=== PATIENT | female | born 1990 | race Caucasian/White ===

== ENCOUNTER 2024-05-02 09:50 | Outpatient (AMB) | payer OTHER, SELFPAY ==
--- NOTE | 2024-05-02 09:52 | A.OFFPC_ITS ---
Vital Signs 05/02/24 10:01 Height 5 ft 5 in Weight 189 lb 4 oz BMI 31.5 BP 122/74 Blood Pressure Location Lt brachial Position Sitting Respiration 13 Pulse 99 Pulse Source Pulse Oximeter Temp 97.7 F Temp Source Oral Pulse Oximetry (%) 99 Oxygen Delivery Method Room Air Intake Visit Reasons: N/P Est. Care Intake Note: new patient to establish care Film Coater Required: No Allergies No Known Allergies Allergy (Verified 05/02/24 09:54) Medication List - Last Reconciled 05/02/24 by FESTUS Kiser No Known Home Meds Tobacco use date assessed: 05/02/24 Dental Screening Dental Screen Date: 05/02/24 Did you have a dental visit in the last 12 months?: Yes Did you have a dental problem in the last 6 months where you did not have access to dental care?: No Was dental information given to patient?: Patient has dentist HPI HPI Comments History of Present Illness Details 33-year-old female with ADHD, opiate dep endence, PTSD, OCD, obesity, MDD, LISA Psych: multiple admissions surgical hx: L arm family hx: 2 boys alive and well, (6 &4), lives w children and mom. Recently fired from job, missed her shift. Denies any fmhx dm, cancer, cad, + thyroid mom and mgm Health Maintenance ? PAP utd with outside provider ? Tdap 2018, declined flu Specialists: [facility] for subaxone heel stiffener Psychiatry and counselor Here today to est care and for a CPE Previous PCP Dr Brown at [facility], reports has not been seen in years. No previous records available to me today Her biggest concern is that of her ADHD, LISA, MDD, PTSD on ODD. Was seeing [facility] in [place] for years Reports she is w/o her license and has been without her medications since February. She did visit the emergency room to get refills on her Adderall as well as her bupropion. The last time that she was on these medications was in March. She reports that h er symptoms are uncontrolled without these medications. She has an appointment with [facility] for both the prescriber and counselor. Her 1st appointment for the prescriber is 07/06/2024 She would bring with me records from [facility] that I was able to review that supports her diagnoses along with the medications that she was taking. I also reviewed [facility]. See the information below. She was not forthcoming about her Suboxone but once asked about it she disclosed the information about the opiate addiction in the past. When the UTox was discuss she states that she has been taking Ativan that she was prescribed at an emergency room visit. The last time was about 3 days ago. She is also maintained on Suboxone managed by [employer] what she reports as an Internet based business. 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 She reports that she has never used injectable drugs or any street d rugs. Reports that she has only been maintained on Suboxone which is working well for her. Optho no glasses, no concerns Skin - no changes, no family hx of skin ca Plan Check routine screening labs today to establish a baseline. Include a urine toxicology screen. Patient was made aware of the requirements for passing a urine tox screen to be prescribed Adderall. If she passes the urine tox screen I will prescribe Adderall and bridge her until she was seen by her prescriber at [facility] in July. I have sent her bupropion XL 150 mg to her pharmacy and she can restart that right away. If she is able to start on the Adderall she will be required return to the office in 30 days and complete a contract. The below information was reviewed with her today at the time of the visit. She will be communicated with via the portal with the results of her U tox screen in the next steps. If the U tox is positive she will need to follow up with her prescriber for any additional stimulants or controlled substances. Labs from 05/02/2024 show normal electrolytes, normal renal function, hemoglobin A1c of 5%, AST 23, elevated ALT at 50, normal lipid profile, normal B12, normal vitamin-D, normal TSH and folate, normal urine microalbumin creatinine ratio, the urine toxicology screen was positive for buprenorphine urine and amphetamines. Given the + amphetamines will defer adderral prescribing. Pt made aware via phone call. RUN: 05/02/24 170 7 PAGE 1 [facility] [address] [place] [id number] Phon e: [phone] Product Development Technician terence: Bill Johnson M.D. Specimen Inqu iry Name: Raul Gonzalez Age/Sex: 33 /F : Acct#: [id number] Unit#: [id number] Atten d Dr: Patric Dixon MEDICAL TECHNOLOGIST CLINICALindeniBC Re05/02/24 Status: REG REF [facility] Disch: SPEC : [id number] ROSI: -1106 ST ATUS: COMP REQ : [id number] RECD: -[address]: Rajiv Dixon MEDICAL TECHNOLOGIST CLINICAL-[employer] COMP: 0 05/02/24-1448 ENTER ED: 05/02/24-[address]: GURPREET RED: Ur Drug Scrn Test Result Flag Refere nce Opiates, Ur No t Detected Not Det ect Opiate cut-off is 300 ng/mL. Positive resul ts are unconfirmed and should not be used for n on-medical purpose s. Barbiturate, Ur Not Detected Not D etect Barbiturate cut-off is 200 ng/ mL. Positiv e results are unco nfirmed and should not be used for non-medical purposes. PCP, U r Not Detecte d Not Detect Phenc yclidine cut-off i s 25 ng/mL. Positive results are unconfirmed an d should not be us ed for non- medical purposes. Amphetamine,Ur P OSITIVE H Not Dete ct Amphetamine cut -off is 1000 ng/mL . Positive results are unconf irmed and should n ot be used for non-medical pu rposes. Benzodia zep,Ur Not Detected Not Detect Benzodi azepine cut-off is 200 ng/mL. Positive results are unconfirmed an d should not be us ed for non- medical purposes. Cocaine, Ur Not Detected Not Dete ct Cocaine cut-off is 300 ng/mL. Positive resul ts are unconfirmed and should not be used for n on-medical purpose s. Cannabinoid, Ur Not Detected Not D etect Cannabinoid cut-off is 50 ng/m L. Positive results are uncon firmed and should not be used for non-medical p urposes. Ur Meth Scrn Not Detected Not Detect ng/mL Methadone cut-off is 300 ng/mL. Positive resul ts are unconfirmed and should not be used for n on-medical purpose s. Fentanyl, ur Not Detected Not D etect Fentanyl cut -off is 1 ng/mL. Positive res ults are unconfirm ed and should not be used for non-medical purpo ses. Oxycodone U rine Not Detected Not Detect ng/mL Oxy codone cut-off is 100 ng/mL. Positive results a re unconfirmed and should not be use d for non-m edical purposes. Buprenorph Scr Po sitive H Not Detec t ng/mL Buprenor phine cut-off is 5 ng/mL. Pos itive results are unconfirmed and sh ould not be used f or non-medi katie purposes. END OF REPORT * * Patient is aware they are being prescribed a controlled substance. They were educated that this medication does require routine monthly office visits to monitor weight, blood pressure, heart rate and to screen for any signs of abuse or misuse. They were educated that they may be subject to random pill counts and/or U tox screenings. The prescription drug monitoring program we will be monitored at each visit to further screen for signs of abuse or misuse to include filling prescriptions at other physician's offices. The patient should maintain prescription refills of the same local pharmacy and advised the provider of any changes immediately. If at any time there is a concern for abuse or misuse or if there are any signs of side effects such as elevated blood pressure, elevated heart rate or weight loss patient is made aware that this medication will be discontinued. The patient is aware of the above and is willing to proceed. This note is constructed using voice recognition software. While every effort has been made to ensure accuracy in pug machine operator, still errors may have been included Sometimes, these errors may affect the content or meaning of the given sentence . An additional 20 minutes was spent addressing the problem(s) noted at todays visit. This includes time spent before the visit reviewing the chart, time spent during the visit, and time spent after the visit on documentation reviewing laboratory results, diagnostic imaging, medications, performing a medically necessary evaluation, counseling on diagnoses, care coordination, ordering appropriate tests, ordering appropriate medications, review of tests performed by other providers, reporting test results with the patient, communication with other healthcare providers. Prescriptions Total: 157 ?Private Pay: 4 Showing 1-15 of 157 Items?View?15 Items? [email or web address] ??of 11? [email or web address] Filled? Written? ID? Drug? QTY? Days? Prescriber? RX #? Dispenser? Refill? Daily Dose*? Pymt Type? [facility]? 04/21/2024 04/21/2024 1 Sub oxone 8 Mg-2 Mg Sl Film 42 14 Ca Kor [id number] Cv s (1450) 0/0 24.00 mg [place] 04/07/2024 04/07/2024 1 Sub oxone 8 Mg-2 Mg Sl Film 42 14 Ca Kor [id number] Cv s (1450) 0/0 24.00 mg [place] 03/27/2024 03/24/2024 1 Sub oxone 8 Mg-2 Mg Sl Film 42 14 Ca Kor [id number] Cv s (1450) 0/0 24.00 mg [place] 03/13/2024 03/10/2024 1 Sub oxone 8 Mg-2 Mg Sl Film 42 14 Ca Kor [id number] Cv s (1450) 0/0 24.00 mg [place] 02/28/2024 02/26/2024 1 Sub oxone 8 Mg-2 Mg Sl Film 42 14 Ca Kor [id number] Cv s (1450) 0/0 24.00 mg [place] 02/16/2024 02/14/2024 1 Sub oxone 8 Mg-2 Mg Sl Film 42 14 Je Gag [id number] Cv s (1450) 0/0 24.00 mg [place] 02/16/2024 02/16/2024 1 Dex troamp-Amphet E r 20 Mg Cap 14 14 [facility] [id number] Cv s (1450) 0/0 PFSH Medical History (Updated 05/02/24 @ 10:56 by Mónica Dixon [facility]) ADHD Anxiety and depression Odd detrimental health beliefs PTSD (post-traumatic stress disorder) Surgical History (Updated 05/02/24 @ 10:00 by Kuldeep Collado MA) H/O hand surgery Family History (Updated 05/02/24 @ 10:00 by Kuldeep Collado MA) Sister Mental health disorder Father Mental health disorder Substance abuse Mother Thyroid disorder Maternal Grandmother Thyroid disorder Social History (Updated 05/02/24 @ 09:59 by Kuldeep Collado MA) Household Members: Family and Children Housing: House Are you a primary healthcare specialist to a significant other at home: Yes Do you presently have visiting nurse or other home services: No Alcohol intake: current Alcohol intake frequency: a few times a month Patient Tobacco Use Status: Never used Tobacco e-Cigarette/Vaping Use: Never Used Second Hand Smoke Exposure: No Current occupational status: unemployed Cognitive needs: No Hearing needs: No Vision needs: No Questionnaire PHQ-9 Over the last 2 weeks, how often have you been bothered by any of the following problems? 1. Little interest or pleasure in doing things: several days 2. Feeling down, depressed, or hopeless: more than half the days 3. Trouble falling or staying asleep, or sleeping too much: several days 4. Feeling tired or having little energy: several days 5. Poor appetite or overeating: not at all 6. Feeling bad about yourself - or that you are a failure or have let yourself or your family down: several days 7. Trouble concentrating on things, such as reading the newspaper or watching television: nearly every day 8. Moving or speaking so slowly that other people could have noticed. Or the opposite - being so fidgety or restless that you have been moving around a lot more than usual: nearly every day 9. Thoughts that you would be better off or of hurting yourself in some way: not at all Total score: 12 Depression Screening Interpretation: Positive Depression Screening Follow-up: Existing condition and In treatment Depression Screening Done: Yes 15809 - PHQ-9 Billing: Yes Source: Developed by Drs. Lucien Gupta, Corrine Carney, Delano Nesbitt and colleagues, with an educational andrea from [employer]. Thrive Questionnaire Date Thrive assessed: 05/02/24 I am a: Patient What is your living situation today?: I have a steady place to live Within the past 12 months, did the food you bought not last and you didn't have the money to get more?: Never true Within the past 12 months, did you worry whether your food would run out before you got money to buy more?: Never true Do you have trouble paying for medicines?: No Do you have trouble getting transportation to medical appointments?: No Do you have trouble paying your heating and electricity bill?: No Do you have trouble taking care of your child, family member or friend?: No Do you have trouble with day-to-day activities such as bathing, preparing meals, shopping, managing finances, etc.?: No Are you currently unemployed and looking for a job?: Yes Are you interested in more education?: Yes Please select the resources that you would like help with: None Currently or been in a relationship where the following occur: No concerns reported THRIVE Score: 0 AUDIT C Alcohol Use Questionnaire (AUDIT-C) 1. How often do you have a drink containing alcohol?: Never 2. How many drinks containing alcohol do you have on a typical day when you are drinking?: 1 or 2 3. How often do you have six or more drinks on one occasion?: Never Total Score: 0 Score Reviewed/Action Taken: Yes LISA-7 AMB Questionnaire LISA-7 Date LISA - 7 assessed: 05/02/24 Feeling nervous, anxious, or on edge: 1 = Several days Not being able to stop or control worryin = Several days Worrying too much about different things: 0 = Not at all Trouble relaxin = More than half the days Being so restless that it is hard to sit still: 3 = Nearly every day Becoming easily annoyed or irritable: 0 = Not at all Feeling afraid as if something awful might happen: 0 = Not at all Total LISA-7 score (0-4 normal; 5-9 mild; 10-14 moderate; 15-21 severe): 7 Source: Developed by Drs. Lucien Gupta, Delano Crawford Kroenke and colleagues, with an educational andrea from [employer]. LISA-7 Assessment Billing LISA-7 Assessment Tool: LISA-7 Assessment 37372 Physical exam (Primary Care) Vital Signs: Last Vital Signs Temp 97.7 F 05/02/24 10:01 Pulse 99 05/02/24 10:01 Resp 13 05/02/24 10:01 BP 122/74 05/02/24 10:01 Pulse Ox 99 05/02/24 10:01 Oxygen Delivery Method Room Air 05/02/24 10:01 BMI result Body Mass Index 31.5 BMI Assessment/Plan discussion: High BMI High, discussed plan: lifestyle Tobacco/Smoking Status: Tobacco use Status Tobacco use date assessed 05/02/24 05/02/24 10:04 Patient Tobacco Use Status Never used Tobacco 05/02/24 10:04 e-Cigarette/Vaping Use Never Used 05/02/24 10:04 PHQ-9: PHQ-9 Score PHQ-9: Total score 12 05/02/24 10:34 Depression Screening Interpretation: Positive Depression Screening Follow-up: Existing condition and In treatment Thrive Assessment: Date of Thrive Assessment Date Thrive assessed 05/02/24 05/02/24 09:53 Currently or been in a relationship where the following occur: No concerns reported Const Other: General: Well developed, well nourished, in no acute distress. Appears stated age. Head: Normocephalic, atraumatic. Eyes: Pupils are equal, round and reactive to light and accommodation. Conjunctivae are clear. Vision grossly normal. Ears: TMs clear AU, EACS WNL Nose: Patent, without discharge. Mouth: There are no ulcers or lesions noted. No inflammation, no post nasal drip, no plaques nor exudates. Geographic tongue Neck: Supple, no adenopathy or thyromegaly. Lungs: Clear to auscultation bilaterally. No rales, rhonchi or wheeze noted. Good air flow in all lares. Heart: Regular rate and rhythm. No murmurs, click, rubs or gallops are noted. Abdomen: Bowel sounds present in all quadrants. The abdomen is soft, nontender, with no masses or organomegaly noted. No hernias are noted. Musculoskeletal: Joints are nontender, without swelling, redness, or effusions. Range of motion is observed to be normal. Pulses: Peripheral pulses are equal and palpable bilaterally. Extremities: No clubbing, cyanosis nor edema is noted. Neurologic: Gait and station normal. Cranial Nerves 2-12 intact. Motor strength grossly symmetrical and intact. No sensory loss. Balance normal. Skin: No rashes, ulcers, or lesions noted. Turgor is good. Skin color is good. Hair and nails are without abnormalities. Psych: Normal eye contact, affect and mood appropriate, and normal interactions. Patient is alert and appropriate to context. Coding Level of Care Code Est Pt Level 3 (37073) New Pt Prev Care 18-39yr(69681 Diagnoses Encounter for general adult medical examination with abnormal findings Z00.01 Laboratory exam ordered as part of routine general medical examination Z00.00 Uncomplicated opioid dependence F11.20 Substance use status: uncomplicated Severe episode of recurrent major depressive disorder, without psychotic features F33.2 Major depression episode severity: severe Psychotic features: without psychotic features LISA (generalized anxiety disorder) F41.1 Attention deficit hyperactivity disorder (ADHD), combined type F90.2 Attention deficit-hyperactivity disorder type: combined inattentive- hyperactive Odd detrimental health beliefs Z78.9 PTSD (post-traumatic stress disorder) F43.10 BMI 31.0-31.9,adult Z68.31 Class 1 obesity due to excess calories without serious comorbidity with body mass index (BMI) of 31.0 to 31.9 in adult E66.811; E66.09; Z68.31 Obesity type: due to excess calories Serious obesity comorbidity presence: without serious comorbidity Additional Codes LISA-7 Assessment Billing - LISA-7 Assessment Tool: LISA-7 Assessment 43961 ([id number]) PHQ-9 - 47754 - PHQ-9 Billing: Yes ([id number]) Assessment & Plan Assessment & Plan (1) Encounter for general adult medical examination with abnormal findings: Code(s): Z00.01 - Encounter for general adult medical examination with abnormal findings Category: Medical (2) Laboratory exam ordered as part of routine general medical examination: Code(s): Z00.00 - Encounter for general adult medical examination without abnormal findings Category: Medical (3) Opiate dependence: Code(s): F11.20 - Opioid dependence, uncomplicated Category: Medical Qualifiers: Substance use status: uncomplicated Qualified Code(s): F11.20 - Opioid dependence, uncomplicated (4) MDD (major depressive disorder), recurrent episode: Code(s): F33.9 - Major depressive disorder, recurrent, unspecified Category: Medical Qualifiers: Major depression episode severity: severe Psychotic features: without psychotic features Qualified Code(s): F33.2 - Major depressive disorder, recurrent severe without psychotic features (5) LISA (generalized anxiety disorder): Code(s): F41.1 - Generalized anxiety disorder Category: Medical (6) ADHD: Code(s): F90.9 - Attention-deficit hyperactivity disorder, unspecified type Category: Medical Qualifiers: Attention deficit-hyperactivity disorder type: combined inattentive- hyperactive Qualified Code(s): F90.2 - Attention-deficit hyperactivity disorder, combined type (7) Odd detrimental health beliefs: Code(s): Z78.9 - Other specified health status Category: Medical (8) PTSD (post-traumatic stress disorder): Code(s): F43.10 - Post-traumatic stress disorder, unspecified Category: Medical (9) BMI 31.0-31.9,adult: Code(s): Z68.31 - Body mass index [BMI] 31.0-31.9, adult Category: Medical (10) Class 1 obesity with body mass index (BMI) of 31.0 to 31.9 in adult: Code(s): E66.811 - Obesity, class 1; Z68.31 - Body mass index [BMI] 31.0-31.9, adult Category: Medical Qualifiers: Obesity type: due to excess calories Serious obesity comorbidity presence: without serious comorbidity Qualified Code(s): E66.811 - Obesity, class 1; E66.09 - Other obesity due to excess calories; Z68.31 - Body mass index [BMI] 31.0-31.9, adult Plan . Orders: Orders Comprehensive Met. Panel Today Z00.00 - Encounter for general adult medical examination without abnormal findings Hemoglobin A1c Today Z00.00 - Encounter for general adult medical examination without abnormal findings Lipid Panel Today Z00.00 - Encounter for general adult medical examination without abnormal findings TSH reflex Free T4 Today Z00.00 - Encounter for general adult medical examination without abnormal findings Vitamin B12 and Folate Today Z00.00 - Encounter for general adult medical examination without abnormal findings Vitamin D 25-OH Total Today Z00.00 - Encounter for general adult medical examination without abnormal findings Drug Screen Urine Today F11.20 - Opioid dependence, uncomplicated Microalbumin, Random (w Creat) Today Z00.00 - Encounter for general adult medical examination without abnormal findings Medications: New bupropion HCl XL 150 mg PO QAM 90 tabs 1RF Patient Instructions: Walk-In Care (Urgent Care): We Make it Easy Walk-in for urgent medical issues such as: ? Seasonal Allergies ? Insect Bites ? Cough ? Diarrhea ? Acute Asthma Attacks ? Back, Knee or Joint Pain ? Ear Infection ? Fever without a Rash ? Headaches ? Nausea ? [place], Rash or Skin Irritation ? Sore Throat ? Sports Physicals ? Vomiting Most insurances are accepted. Patients do not need to be part of the [facility] to seek care at the walk-in clinic. Locations [facility] [place] , [place] [address] ? [phone] [facility] in [place] provides services to ages 18 and over. Open Tuesday-Tuesday: 8 a.m. to 5 p.m. and Tuesday: 9 a.m. to 3 p.m.* *Hours may vary due to staffing availability. To confirm Walk-In Care hours in [place], please call [phone]. [address] [place] [address] ? [phone] [facility] in [place] provides services to ages 12 and over. Open Tuesday-Tuesday: 8 a.m. to 5 p.m. Hours may vary due to staffing availability. To confirm Walk-In Care hours in [place], please call [phone]. LABORATORY SERVICES: [facility] ? Primary Location [address] [place] [address] Tuesday through Tuesday 6:00 AM ? 5:00 PM Tuesday 7:00 AM ? 11:00 AM* [phone] The [facility] Lab is centrally located near the front entrance of the Medical Center for easy outpatient access. Convenient parking is provided for outpatients. *Hours may vary due to staffing availability. To confirm Laboratory hours for any location, please call [phone]. Offsite Location For your convenience, we offer offsite laboratory draw stations at the following locations: [address] [place] [address] ? [facility] [place] [address], [address], [address], [place] Tuesday through Tuesday 7:30 AM ? 1:00 PM* [phone] *Hours may vary due to staffing availability. To confirm Laboratory hours for any location, please call [phone]. [place] ? [facility] [address] [facility] Tuesday through Tuesday 6:00 AM ? 3:30 PM* Tuesday 6:30 AM ? 3 PM* [phone] *Hours may vary due to staffing availability. To confirm Laboratory hours for any location, please call [phone] [place] [address] Tuesday through Tuesday 7:30 AM ? 4:00 PM* [phone] *Hours may vary due to staffing availability. To confirm Laboratory hours for any location, please call [phone] [place] [address] Tuesday through 9:00 AM ? 4:00 PM* *Hours may vary due to staffing availability. To confirm Laboratory hours for any location, please call [phone]. Appointments are not necessary. Walk-ins are welcome. Like all the departments throughout the [facility], our Lab undergoes frequent reviews to ensure the quality and accuracy of test results, and our staff takes special pride in its status as a nationally accredited facility. Patient Portal: ONE PATIENT. ONE RECORD. BETTER CARE. [facility] [facility] has a fully integrated, cutting- edge mobile electronic health information system that has revolutionized the way we care for our patients and manage our organization. This system improves communication and coordination enabling us to provide safe, higher-quality care, and an overall positive experience for staff and patients. Our first priority, as always, is to deliver the highest quality care possible. The system is running in the background supporting that priority. This portal is for all [facility] services and practices. If you are experiencing any technical difficulties with enrolling or logging into the Patient Portal please complete the [facility] Patient Portal Technical Support Form. [facility] now offers a new secure on-line interactive tool for patients to review their health information ? ?Patient Portal. This interactive web portal will enable patients and their families to take an active role in their care by providing easy, secure access to their health information via the internet. The Patient Portal provides patients with instant access to their health information, including laboratory results, medications, allergies, demographic information, visit history, and more. In addition to managing their own care, parents and health care proxies with authorized consent will appreciate the ability to access the records of those individuals for whom they provide care. Please note: if you wish to gain access (Proxy) to another patient?s portal, you will be required to come to the Medical Records Department in person at [facility]. Both the patient giving proxy access and the proxy will need to provide photo identification and complete the appropriate authorization. The Patient Portal also allows track their appointments online. The [facility] Patient Portal also saves patients time by allowing them to submit updates to their demographic and contact information prior to their visits. Portal email notifications will also alert patients to any new activity on their portal, such as test results and new appointments. In order to initially enroll in the [facility] Patient Portal, you will need to enter some required information including the following: * your [facility] Medical Record number * your personal home email address * name * date of Please note: In order to enroll in the [facility] Patient Portal, we need to have your email address on file in your electronic medical record. ?The email address needs to be specific for one person (yourself) in order for your Portal en rollment to be successful. ?You can update your email address in person with our Registration staff when you are registering for a hospital visit. ?Otherwise, you will need to come to the Health Information Management (Medical Records) Department at [facility]. ?We are open from Tuesday ? Tuesday from 7:30 a.m. ? 4:30 p.m. ?You will be required to present a photo id. Once you have successfully enrolled in the Patient Portal, you will receive a one-time user id and password for the Portal, sent to your email address. ?This will allow you to log into the Patient Portal within 99 hrs and reset your own logon id and password, and define personal security questions. ?Once your permanent login and password have been set, you can log into the [facility] Patient Portal at any time via the blue button above or from the Portal Logon button on any page of the [facility] website. [facility] encourage all of our patients to enroll in Patient Portal as it presents a valuable opportunity for patients and their families to actively participate in their care and stay healthy Welcome to [facility]. ?We look forward to working with you. Health screenings for women You should visit your health care provider from time to time, even if you are healthy. The purpose of these visits is to: Screen for medical issues Assess your risk for future medical problems Encourage a healthy lifestyle Update vaccinations and other preventive care services Help you get to know your provider in case of an illness Information Even if you feel fine, you should still see your provider for regular checkups. These visits can help you avoid problems in the future. For example, the only way to find out if you have high blood pressure is to have it checked regularly. High blood sugar and high cholesterol levels also may not have any symptoms in the early stages. A simple blood test can check for these conditions. There are specific times when you should see your provider or receive specific health screenings. The [place] Preventive Services Task Force publishes a list of recommended screenings. Below are screening guidelines for women ages 18 to 39. BLOOD PRESSURE SCREENING Your blood pressure should be checked at least once every 3 to 5 years if: Your blood pressure is in the normal range (top number less than 120 mm Hg and bottom number less than 80 mm Hg) You don't have risk factors for high blood pressure Ask your provider if you need your blood pressure checked more often if: The top number is 120 to 129 mm Hg or the bottom number is 70 to 79 mm Hg You have diabetes, heart disease, kidney problems, are overweight, or have certain other health conditions You have a first-degree relative with high blood pressure You are Black You had high blood pressure during a If the top number is 130 mm Hg or greater or the bottom number is 80 mm Hg or greater, this is considered stage 1 hypertension. Schedule an appointment with your provider to learn how you can reduce your blood pressure. Watch for blood pressure screenings in your area. Ask your provider if you can stop in to have your blood pressure checked. BREAST CANCER SCREENING Experts do not agree about the benefits of breast self-exams in finding breast cancer or saving lives. Talk to your provider about what is best for you. A screening mammogram is not recommended for most women under age 40. Your provider may discuss and recommend mammograms, MRI scans, or ultrasounds if you have an increased risk for breast cancer, such as: A mother or sister who had breast cancer at a young age (most often starting screening earlier than the age the close relative was diagnosed) You carry a high-risk genetic marker CERVICAL CANCER SCREENING Cervical cancer screening should start at age 21 years unless your provider advises otherwise. After the first test: Women ages 21 through 29 should have a Pap test every 3 years. Exoprts do not agree on whether HPV testing is recommended for this age group. Women ages 30 through 65 should be screened with either a Pap test every 3 years or the HPV test every 5 years or both tests every 5 years (called cotesting ). Women who have been treated for precancer (cervical dysplasia) should continue to have Pap tests for 20 years after treatment or until age 65, whichever is longer. If you have had your uterus and cervix removed (total hysterectomy), and you have not been diagnosed with cervical cancer or precancer (high grade cervical neoplasia), you do not need cervical cancer screening. CHOLESTEROL SCREENING Cholesterol screening should begin at: Age 45 for women with no known risk factors for coronary heart disease Age 20 for women with known risk factors for coronary heart disease Repeat cholesterol screening should take place: Every 5 years for women with normal cholesterol levels More often if changes occur in lifestyle (including weight gain and diet) More often if you have diabetes, heart disease, kidney problems, or certain other conditions DIABETES SCREENING You should be screened for diabetes starting at age 35 and then repeated every 3 years if you have no risk factors for diabetes. Screening may need to start earlier and be repeated more often if you have other risk factors for diabetes, such as: You have a first degree relative with diabetes. You are overweight or have obesity. You have high blood pressure, prediabetes, or a history of heart disease. Screening for diabetes should be done if you are planning to become and you are overweight and have other risk factors such as high blood pressure. DENTAL EXAM Go to the dentist once or twice every year for an exam and cleaning. Your dentist will evaluate if you need more frequent visits. EYE EXAM Have an eye exam every 5 to 10 years before age 40. If you have vision problems, have an eye exam every 2 years or more often if recommended by your provider. You should have an eye exam that includes an examination of your retina (back of your eye) at least every year if you have diabetes. IMMUNIZATIONS Commonly needed vaccines include: Flu shot: get one every year. COVID-19 vaccine: ask your provider what is best for you. Tetanus-diphtheria and acellular pertussis (Tdap) vaccine: have one at or after age 19 as one of your tetanus-diphtheria vaccines if you did not receive it as an adolescent. Tetanus-diphtheria: have a booster (or Tdap) every 10 years. Varicella vaccine: receive 2 doses if you never had chickenpox or the varicella vaccine. Hepatitis B vaccine: receive 2, 3, or 4 doses, depending on your exact circumstances. Measles, mumps, and rubella (MMR) vaccine: receive 1 to 2 doses if you are not already immune to MMR. Your provider can tell you if you are immune. Ask your provider about the human papillomavirus (HPV) vaccine if: You have not received the HPV vaccine in the past You have not completed the full vaccine series (you should catch up on this shot) Ask your provider if you should receive other immunizations if you have certain health problems that increase your risk for some diseases such as pneumonia. INFECTIOUS DISEASE SCREENING Women who are sexually active should be screened for chlamydia and gonorrhea up until age 25. Women 25 years and older should be screened for chlamydia and gonorrhea if at high risk. Screening for hepatitis C: All adults ages 18 to 79 should get a one-time test for hepatitis C. people should be screened at every . Screening for human immunodeficiency virus (HIV): All people ages 15 to 65 should get a one-time test for HIV. Depending on your lifestyle and medical history, you may also need to be screened for infections such as syphilis and HIV, as well as other infections. PHYSICAL EXAM All adults should visit their provider from time to time, even if they are healthy. The purpose of these visits is to: Screen for disease Assess your risk of future medical problems Encourage a healthy lifestyle Update your vaccinations and other preventive care services Maintain a relationship with a provider in case of an illness Your height, weight, and BMI should be checked at every exam. During your exam, your provider may ask you about: Depression and anxiety Diet and exercise Alcohol and tobacco use Safety issues, such as using seat belts, smoke detectors, and intimate partner violence Your medicines and risk for interactions SKIN SELF-EXAM Your provider may check your skin for signs of skin cancer, especially if you're at high risk, such as if you: Have had skin cancer before Have close relatives with skin cancer Have a weakened immune system OTHER SCREENING Talk with your provider about colon cancer screening if you have a strong family history of colon cancer or polyps, or if you have had inflammatory bowel disease or polyps yourself. Routine bone density screening of women under 40 is not recommended.
[2024-05-02 10:01] VITALS: BP 122/74; PULSE 99; RESP 13; TEMP 36.5; O2SAT 99; BMI 31.5
--- OUTSIDE RECORDS SUMMARY | 2024-05-02 11:36 | XMS_ITS | Clinical Summary ---
Author Organization [facility] it Address [address] [place] [address] Care Team Providers Care Tub Attendant Name Role Phone Chang Perez DO Primary Care Provider [phone] Surgical History Surgery Date Site/Laterality Comments OTHER SURGICAL HISTORY 02/2009 PROCEDURE: [place] ANES RADIUS ULNA WRIST/HAND BONES CLOSED PX OTHER SURGICAL HISTORY 03/15/12 PROCEDURE: [place] DILATION & CURETTAGE DX&/THER NONOBSTETRIC; COMMENT: ERS performed by Dr. Matta in management of a Missed . Family History Medical History Relation Name Comments Diabetes Maternal Grandmother Relation Name Status Comments Father Alive Maternal Grandfather Maternal Grandmother Alive Mother Alive Paternal Grandfather Paternal Grandmother Alive Sister Alive Social History Tobacco Use Types Packs/Day Years Used Date Smoking Tobacco: Former Smokeless Tobacco: Never Alcohol Use Standard Drinks/Week Comments No 0 (1 standard drink = 0.6 oz pur e alcohol) Sex and Gender Information Value Date Recorded Sex Assigned at Not on file Gender Identity Not on file Sexual Orientation Not on file Obstetrics History Plan of Treatment Health Maintenance Due Date Last Done Comments Hepatitis B Vaccines (1 of 3 - 19+ 3-dose series) 11/23/2007 Cervical Cancer Screening: P ap Smear 05/30/2020 05/30/2017 Depression Screening 03/07/2022 HIV Screening 03/07/2022 Hepatitis C Screening 03/07/2022 Social Influencers of Health Screening 03/07/2022 COVID-19 Vaccine (1 - 2023-2 5 season) 2023 Influenza Vaccine (#1) 2023 DTaP,Tdap,and Td Vaccines (2 - Td or Tdap) 11/15/2027 11/14/2017 HIB Vaccines Aged Out No longer eligi ble based on patient's age to complete this topic HPV Vaccines Aged Out No longer eligi ble based on patient's age to complete this topic Hepatitis A Vaccines Aged Out No long er eligible based on patient's age to complete this topic IPV Vaccines Aged Out No longer eligi ble based on patient's age to complete this topic MMR Vaccines Aged Out No longer eligi ble based on patient's age to complete this topic Meningococcal ACWY Vaccine Aged Out N o longer eligible based on patient's age to complete this topic Pneumococcal Vaccine: Pediat rics (0 to 5 Years) and At-Risk Patients (6 to 64 Years) Aged Out No longer eligi ble based on patient's age to complete this topic RSV Immunization Patients Un georgie 20 months Aged Out No longer eligible b ased on patient's age to complete this topic Varicella Vaccines Aged Out No longer eligible based on patient's age to complete this topic Procedures Procedure Name Priority Date/Time Associated Diagnosis Comments PAP SMEAR Routine 05/30/2017 from Last 3 Months or Most Recently Relevant to Health Maintenance Results * Pap smear (05/30/2017) 05/30/2017 Narrative HISTORICAL TESTING LAB RESULTING AGENCY - 06/02/2017 4:45 PM EST [id number] THINPREP PAP, IMAGED: NEGATIVE FOR SQUAMOUS INTRAEPITHELIAL LESION AND MALIGNANCY ??. VICTOR M VANG(ASCP) (CASE ELECTRONICALLY SIGNED 06 01 2017) ADEQUACY: SATISFACTORY. ENDOCERVICAL/TRANSFORMATION ZONE COMPONENT PRESENT. SOURCE: THINPREP PAP HPV IF ASCUS, CERVICAL, IMAGED: CLINICAL INFORMATION: HPV IF DIAGNOSIS OF ASCUS. LMP 02/26/2017, , PAP HX : POSITIVE ASCUS R87.610, Z12.4 Audelia Blake CN LAB CYTOLOGY ORDERAB LES HISTORICAL TESTING LAB RESULTING AGENCY from Last 3 Months or Most Recently Relevant to Health Maintenance Care Teams Tub Attendant Relationship Specialty Start Date End Date Chang Perez DO [address] [place] [address] PCP - General 10/02/06
== END 2024-05-02 10:46 | disposition home or self-care (01) ==
PROVIDERS: PCP Nurse Practitioner Family; Visit Provider Nurse Practitioner Family
DX: Z00.00 Encounter for general adult medical examination without abnormal findings (principal); F11.20 Opioid dependence, uncomplicated; F33.2 Major depressive disorder, recurrent severe without psychotic features; F41.1 Generalized anxiety disorder; F90.2 Attention-deficit hyperactivity disorder, combined type; Z78.9 Other specified health status; F43.10 Post-traumatic stress disorder, unspecified; Z68.31 Body mass index [BMI] 31.0-31.9, adult; E66.811 Obesity, class 1

== ENCOUNTER → 2024-05-02 09:50 | Outpatient (BNVA) | payer OTHER, SELFPAY | PROVIDERS: PCP Nurse Practitioner Family; Visit Provider Nurse Practitioner Family | DX: Z00.01 Encounter for general adult medical examination with abnormal findings (principal); F43.10 Post-traumatic stress disorder, unspecified; F42.9 Obsessive-compulsive disorder, unspecified; K21.9 Gastro-esophageal reflux disease without esophagitis; F11.20 Opioid dependence, uncomplicated; F33.2 Major depressive disorder, recurrent severe without psychotic features; F41.1 Generalized anxiety disorder; F90.2 Attention-deficit hyperactivity disorder, combined type; E66.811 Obesity, class 1; Z68.31 Body mass index [BMI] 31.0-31.9, adult; Z78.9 Other specified health status | CPT/HCPCS: 96127; 99212; 99385 ==

== ENCOUNTER 2024-05-02 11:00 | Outpatient (REF) | payer OTHER, SELFPAY ==
--- OUTSIDE RECORDS SUMMARY | 2024-05-02 13:20 | XMS_ITS | Clinical Summary ---
Author Organization [facility] it Address [address] [place] [address] Care Team Providers Care Machining And Assembly Supervisor Name Role Phone Chang Perez DO Primary Care Provider [phone] Surgical History Surgery Date Site/Laterality Comments OTHER SURGICAL HISTORY 02/2009 PROCEDURE: [place] ANES RADIUS ULNA WRIST/HAND BONES CLOSED PX OTHER SURGICAL HISTORY 03/15/12 PROCEDURE: [place] DILATION & CURETTAGE DX&/THER NONOBSTETRIC; COMMENT: ERS [...] RESULTING AGENCY - 06/02/2017 4:45 PM EST [id number] THINPREP PAP, IMAGED: NEGATIVE FOR SQUAMOUS INTRAEPITHELIAL [...] Recently Relevant to Health Maintenance Care Teams Machining And Assembly Supervisor Relationship Specialty Start Date End Date Chang Perez DO [address] [place] [address] PCP - General 10/02/06
[2024-05-02 14:48] LABS: Amphetamine Screen Urine POSITIVE (Not Detect); Barbiturates, Urine Not Detected (Not Detect); Benzodiazepines Screen Urine Not Detected (Not Detect); Buprenorphine Scr Positive (Not Detect); Cannabinoid Screen Urine Not Detected (Not Detect); Cocaine Screen Urine Not Detected (Not Detect); Fentanyl, urine Not Detected (Not Detect); Methadone Screen, Urine Not Detected (Not Detect); Opiate Screen Urine Not Detected (Not Detect); Oxycodone Screen Urine Not Detected (Not Detect); Phencyclidine Screen Urine Not Detected (Not Detect)
[2024-05-02 14:49] LABS: Estimated Average Glucose 97 mg/dL; Hemoglobin A1C 107.8626 umol/L; Total Hemoglobin (HGBA1C) 3526.3775 umol/L
[2024-05-02 15:19] LABS: Microalbum/Creatinine Ratio Ur 4.3 ug/mg cr (<30)
[2024-05-02 15:30] LABS: Alanine Aminotransferase 50 U/L (0-31); Albumin Level 4.3 g/dL (3.5-5.0); Alkaline Phosphatase 86 U/L (39-117); Anion Gap 8 (12-20); Aspartate Amino Transferase 23 U/L (5-31); Bilirubin Total 0.4 mg/dL (0.0-1.0); Blood Urea Nitrogen 8 mg/dL (9-16); Calcium 8.6 mg/dL (8.4-10.2); Carbon Dioxide 26 mmol/L (22-29); Chloride 105 mmol/L (96-108); Cholesterol 122 mg/dL (<200); Estimated Glomerular Filt Rate > 60; Glucose Random 79 mg/dL (60-115); HDL Cholesterol 51 mg/dL (>40); LDL Cholesterol Calculated 54 mg/dL (<100); Potassium 3.6 mmol/L (3.3-5.1); Sodium 135 mmol/L (135-145); Total Protein 7.7 g/dL (6.5-8.0); Triglycerides 88 mg/dL (<150)
[2024-05-02 15:46] LABS: TSH reflex Free T4 1.56 uIU/mL (0.32-4.0); Vitamin D 25-OH Total 44.8 ng/mL (>30)
[2024-05-02 15:58] LABS: Folate 6.7 ng/mL (> or = 4.0); Vitamin B12 807 pg/mL (200-900)
== END 2024-05-02 11:01 | disposition home or self-care (01) ==
LOC: HO.WFDLDS 11:00
PROVIDERS: Visit Provider Nurse Practitioner Family
DX: Z00.00 Encounter for general adult medical examination without abnormal findings (principal); F11.20 Opioid dependence, uncomplicated
CPT/HCPCS: 80053; 80061; 80307; 82043; 82306; 82570; 82607; 82746; 83036; 84443